=== PATIENT | male | born 1985 | race African-American/Black ===

== ENCOUNTER 2020-05-16 14:54 | Emergency (ER) | payer OTHER ==
[~2020-05-16] VITALS: Ht 195.6 cm; Wt 74.8 kg
[2020-05-16 16:02] LABS: URINE BILIRUBIN NEGATIVE (Negative); URINE BLOOD NEGATIVE (Negative); URINE CLARITY CLEAR; URINE COLOR YELLOW; URINE GLUCOSE-RANDOM* NEGATIVE (Negative); URINE KETONES TRACE (Negative); URINE LEUKOCYTES-REFLEX NEGATIVE (Negative); URINE NITRITE-REFLEX NEGATIVE (Negative); URINE PROTEIN (DIPSTICK) TRACE (Negative); URINE SPECIFIC GRAVITY 1.025 (1.005-1.035)
[2020-05-16 16:45] LABS: AMP/METHAMP POSITIVE (Negative); BARBITURATES Negative (Negative); BENZODIAZEPINES Negative (Negative); COCAINE Negative (Negative); METHADONE Negative (Negative); OPIATES Negative (Negative); PCP Negative (Negative)
[2020-05-16 18:03] VITALS: BP 120/68
== END 2020-05-16 18:05 | disposition home or self-care (01) ==
LOC: ER 14:54
PROVIDERS: Nurse Practitioner Family
DX: F15.10 Other stimulant abuse, uncomplicated (principal); F22 Delusional disorders; F17.210 Nicotine dependence, cigarettes, uncomplicated; Z88.8 Allergy status to other drugs, medicaments and biological substances